=== PATIENT | male | born 1955 | race Caucasian/White ===

== ENCOUNTER → 2024-05-10 16:17 | Outpatient (REF) | payer OTHER, SELFPAY | LOC: RAD 16:17 | PROVIDERS: ATTENDING PHYSICIAN Student in an Organized Health Care Education/Training Program | DX: R51.9 Headache, unspecified (principal) | CPT/HCPCS: 70450 ==

== ENCOUNTER 2024-06-21 06:32 | Day surgery (SDC) | payer OTHER, SELFPAY | END 2024-06-21 10:34 | disposition home or self-care (01) | LOC: GI 06:32 | PROVIDERS: ATTENDING PHYSICIAN Specialist | DX: Z12.11 Encounter for screening for malignant neoplasm of colon (principal); D12.5 Benign neoplasm of sigmoid colon; K63.5 Polyp of colon; Z86.0101 Personal history of adenomatous and serrated colon polyps | CPT/HCPCS: 45385; 88305 ==

== ENCOUNTER → 2025-01-01 06:33 | Outpatient (REF) | payer SELFPAY | LOC: RAD 06:33 | PROVIDERS: ATTENDING PHYSICIAN Student in an Organized Health Care Education/Training Program | DX: Z00.00 Encounter for general adult medical examination without abnormal findings (principal); Z82.3 Family history of stroke; Z12.11 Encounter for screening for malignant neoplasm of colon; Z12.12 Encounter for screening for malignant neoplasm of rectum | CPT/HCPCS: 75571 ==

== ENCOUNTER → 2025-03-22 09:44 | Outpatient (REF) | payer OTHER, SELFPAY ==
--- NOTE | 2025-03-22 11:31 | CARDSERVDEF ---
Addendum entered by Alivia Paul RN 03/22/25 11:35:
Left upper forearm IV inserted by IV team, site clear, flushed easily.
Original Note:
Echocardiogram with Definity completed after protocol screening completed. Allergies verified.
Patent IV site: _Left upper forearm 22 G PC____
IV site flushed with 0.9% NaCl pre and post administration.
Diluted bolus method utilized to enhance visualization of ventricular feldman.
Total volume given: _4.5___ mL
Patient tolerated all procedures well without complications.
Heplock D/C ed at 1128, site clear, no redness, no edema. Pressure held, no bleeding,2x2 applied and taped. Pt offers no complaints.
== END ==
LOC: RCS 09:44
PROVIDERS: ATTENDING PHYSICIAN Internal Medicine Cardiovascular Disease; FAMILY PHYSICIAN Student in an Organized Health Care Education/Training Program
DX: R07.9 Chest pain, unspecified (principal)
CPT/HCPCS: 93017; 93350; Q9957